=== PATIENT | male | born 1960 | race Caucasian/White ===

== ENCOUNTER 2019-01-10 23:44 | Emergency (ER) | payer MEDICAID ==
[~2019-01-10] VITALS: Ht 182.9 cm; Wt 260.0 kg
[2019-01-11] MEDS ORDERED: ondansetron 4mg rapidly disintigrating tab PO ONE (00:05)
[2019-01-11] MEDS ORDERED: nitroGLYCERIN 0.4mg SUBLingual tab SL PRN (00:05)
[2019-01-11] MEDS ORDERED: LIDOcaine Viscous 15ml cup PO ONE (00:20)
[2019-01-11] MEDS ORDERED: mag hydrox/Alum hydrox/simeth 30ml oral suspension PO ONE (00:20)
[2019-01-11] MEDS ORDERED: morphine 4 MG/ML inj SYRINge IV ONE (00:30)
[2019-01-11] MEDS ORDERED: ondansetron/PF 4mg/2ml inj IV ONE (00:30)
[2019-01-11] MEDS ORDERED: aspirin 325mg tablet PO ONE (00:30)
[2019-01-11 00:34] LABS: BASOPHILS # (AUTO) 0.1 X10'3 (0-0.2); BASOPHILS % (AUTO) 0.8 % (0-1); EOSINOPHILS # (AUTO) 0.2 X10'3 (0-0.9); HEMATOCRIT 52.6 % (42.0-52.0); HEMOGLOBIN 17.6 g/dl (14.0-17.9); LYMPHOCYTES # (AUTO) 2.5 X10'3 (1.1-4.8); LYMPHOCYTES % (AUTO) 21.7 % (21-51); MEAN CORPUSCULAR HEMOGLOBIN 30.2 PG (27.0-31.0); MEAN CORPUSCULAR HGB CONC 33.4 g/dL (33.0-36.5); MEAN CORPUSCULAR VOLUME 90.4 FL (78-98); MEAN PLATELET VOLUME 8.6 FL (7.4-10.4); MONOCYTES # (AUTO) 0.7 X10'3 (0-0.9); MONOCYTES % (AUTO) 6.2 % (2-12); NEUTROPHILS # (AUTO) 7.9 X10'3 (1.8-7.7); NEUTROPHILS % (AUTO) 69.3 % (42-75); PLATELET COUNT 231 X10'3 (140-440); RED BLOOD COUNT 5.82 X10'6 (4.70-6.10); RED CELL DISTRIBUTION WIDTH 14.5 % (11.5-14.5); WHITE BLOOD COUNT 11.4 X10'3 (4.5-11.0)
[2019-01-11 00:48] LABS: ALANINE AMINOTRANSFERASE 32 U/L (12-78); ALBUMIN 3.5 G/DL (3.4-5.0); ALBUMIN/GLOBULIN RATIO 1.1 (1.1-1.5); ANION GAP 8 (8-16); ASPARTATE AMINO TRANSFERASE 16 U/L (10-37); BILIRUBIN,TOTAL 0.4 MG/DL (0.1-1.0); BLOOD UREA NITROGEN 22 MG/DL (7-18); BUN/CREATININE RATIO 15.8 (5.4-32.0); CALCIUM 8.8 MG/DL (8.5-10.1); CHLORIDE 105 MMOL/L (99-107); CREATININE 1.39 MG/DL (0.60-1.10); GLUCOSE 146 MG/DL (70-104); POTASSIUM 4.1 MMOL/L (3.5-5.1); SODIUM 140 MMOL/L (135-145); TOTAL CARBON DIOXIDE 27.2 MMOL/L (24-32); TOTAL PROTEIN 6.8 G/DL (6.4-8.2); eGFR 53 ML/MIN
[2019-01-11 00:49] LABS: ALKALINE PHOSPHATASE 79 IU/L (46-116)
[2019-01-11 00:50] LABS: INR 1.1 INR
[2019-01-11 00:55] LABS: LIPASE 131 U/L (73-393)
[2019-01-11] MEDS ORDERED: famotidine 20mg tablet PO ONE (03:00)
[2019-01-11] MEDS ORDERED: pantoprazole 40mg Tablet.DR PO ONE (03:00)
[2019-01-11] MEDS ORDERED: PANT-47 PO (03:33)
[2019-01-11 04:15] VITALS: BP 126/74
== END 2019-01-11 04:16 | disposition home or self-care (01) ==
LOC: ER 23:45
DX: R07.9 Chest pain, unspecified (principal); R10.13 Epigastric pain; K42.9 Umbilical hernia without obstruction or gangrene; Z79.899 Other long term (current) drug therapy
CPT/HCPCS: 36415; 71045; 80053; 83690; 83735; 83880; 84484; 85025; 85610; 93005; 96374; 96375; 99284; J2270; J2405

== ENCOUNTER 2024-04-05 17:54 | Emergency (ER) | payer MEDICAID ==
[~2024-04-05] VITALS: Ht 180.3 cm; Wt 113.6 kg
[~2024-04-05 17:54] MED LIST: PANT-47 PO
[2024-04-05] MEDS ORDERED: CEPH-585 PO (21:13)
[2024-04-05 21:24] VITALS: BP 129/95; PULSE 77; RESP 15; TEMP 98.3; O2SAT 97
== END 2024-04-05 21:26 | disposition home or self-care (01) ==
LOC: ER 17:55
DX: M25.561 Pain in right knee (principal); E87.79 Other fluid overload; I87.2 Venous insufficiency (chronic) (peripheral); L03.115 Cellulitis of right lower limb; Z72.89 Other problems related to lifestyle; Z79.899 Other long term (current) drug therapy
CPT/HCPCS: 99283

== ENCOUNTER 2025-03-23 01:28 | Emergency (ER) | payer MEDICAID ==
[~2025-03-23] VITALS: Ht 180.3 cm; Wt 111.0 kg
--- NOTE | 2025-03-23 01:52 | ELECTROCARDIOGRAPH REPORT ---
[facility] Test Date: 2025-03-23 Test Time: 01:50:37 Pat Name: AUBREY MADRIGAL Department: [facility]-ER Patient ID: [facility]-[id number] Room: Gender: M Elevator Operator Service: : 1960 Requested By: NITISH JURADO Order Number: [id number] Reading MD: Dr. Nitish Jurado Measurements Intervals [employer] Rate: 85 P: 56 MT: 190 QRS: 120 QRSD: 174 T: 224 QT: 491 QTc: 584 Interpretive Statements Sinus rhythm Probable left atrial enlargement Right bundle branch block Repol abnrm suggests ischemia, diffuse leads Electronically Signed On 03-23-2025 3:20:[address] Nitish Jurado Please click the below link to view image of tracing.
[2025-03-23 02:21] LABS: MEAN PLATELET VOLUME 7.9 FL (7.4-10.4); RED CELL DISTRIBUTION WIDTH 15.8 % (11.5-14.5)
--- NOTE | 2025-03-23 02:21 | RADIOLOGY REPORT ---
CHEST RADIOGRAPH Indication: CP Technique: Single frontal view of the chest was obtained COMPARISON: None FINDINGS: Lines and Tubes: None Lungs: Clear Pleura: No effusion. No pneumothorax. Cardiomediastinal contours: Cardiomegaly. Bones: Unremarkable IMPRESSION: 1. Cardiomegaly.
[2025-03-23 02:45] LABS: CREATININE 1.16 MG/DL (0.60-1.10); PRO BRAIN NATRIURETIC PEPTIDE 2558 PG/ML (0-125); TOTAL CARBON DIOXIDE 24.2 MMOL/L (24-32); eCRCL 69 ML/MIN; eGFR 64 ML/MIN
--- NOTE | 2025-03-23 03:22 | Physician Documentation ---
History of Present Illness ~ Chief Complaint: Edema Stated Complaint: LEG PAIN Time Seen by MD: 02:47 OK to notify your PCP?: Yes Primary Medical Doctor: XU HERR Source: patient, RN/, RN notes reviewed, old records Mode of Arrival: POV Exam Limitations: no limitations HPI 64 year old male with history of diabetes and cardiomegaly seen in bed 08 presents to the emergency department for complaints of bilateral edema that has been present for one month. He states that one month ago he had fallen off a ladder, while falling his legs tangled in the ladder causing abrasions. He states his legs have had trouble healing, complaining of swelling and weeping wounds. Additionally he states he has been short of breath. Patient states he used to see a Executive Asst but no longer does, he cannot recall his last echocardiography. Medication Reconciliation Allergies: Coded Allergies: No Known Allergies (Unverified , 01/10/19) Scheduled Cephalexin*Monohydrate* (Keflex*), 1 CAP PO BID Pantoprazole Sodium (PROTONIX tablet), 1 TAB PO DAILY Durable Medical Equipment Compr.stocking,Thigh,Reg,Large (Compression Thigh Stocking), AHFU ANKLE DAILY, (DME) Past Medical History Past Medical History: *CARDIOVASCULAR*, Hernia, Diabetes Past Surgical History: noncontributory Alcohol Use: Occasionally Lives In: Home Review of Systems All Other Systems at this time: Reviewed and Negative ROS As stated above in the HPI, otherwise all systems are reviewed and negative. Physical Exam Vital Signs: RN Vital Signs have been reviewed: Yes, Temperature: 97.2, Source: Temporal, Heart Rate: 78, Respiratory Rate: 16, BP: 112/82, Pulse Oximetry: 92, Weight: 111.000 Oxygen Flow Rate: 0 Pulse Oximetry Reflects: adequate oxygenation General Appearance General: The patient is well developed, well nourished, nontoxic appearing and is in no acute distress. Skin: [place], warm and dry with no rashes. HEENT: Head was normocephalic and atraumatic. Eyes - pupils equal, round, reactive to light and accommodation. Extraocular movements were intact. Conjun ctivae were nonicteric. Ears - bilateral tympanic membranes were normal. The mouth and oropharynx were clear with moist mucous membranes. There were no pharyngeal exudates or erythema. Neck: Supple and nontender. There was no jugular venous distention, lymphadenopathy, thyromegaly or masses. Chest: Clear to auscultation bilaterally without wheezes, rales or rhonchi. No accessory muscle use. No dullness to percussion. Heart: Rate regular and rhythmic. S1, S2. No murmurs. Palpation of the chest wall was normal. No rubs or thrills. Abdomen: Soft, nontender and nondistended. Positive bowel sounds. No guarding or rebound. No hepatosplenomegaly or palpable masses. Extremities: Bilateral crusting ulcerations with weeping edema. The patient moves all extremities. Pulses were equal and symmetric. Neurologic: Cranial nerves II-XII were intact. Sensation was intact to light touch throughout. Motor strength was 5/5 in all four extremities. Deep tendon reflexes were intact in both upper and lower extremities. Psychologic: The patient was oriented to person, place and time. The patient demonstrated appropriate judgement and insight. Progress Results/Orders Reviewed/noted all lab results: Yes Results/Orders Orders - HUMPHREY MCGILL MD Chest,Single View (03/23/25 01:55) Monitor (03/23/25 01:39) Saline Lock (03/23/25 01:39) Oxygen (03/23/25 01:39) Electrocardiogram (03/23/25 01:39) Completed Orders - HUMPHREY MCGILL MD Chest,Single View (03/23/25 01:55) Cbc/Diff (03/23/25 01:39) BMP (03/23/25 01:39) PBNP (03/23/25 01:39) Electrocardiogram (03/23/25 01:39) Hs Troponin I W Calculations (03/23/25 01:39) Furosemide Tablet (Lasix Tablet) (03/23/25 03:50) Carvedilol Tablet (Coreg Tablet) (03/23/25 03:50) Cephalexin Capsule (Keflex Capsule) (03/23/25 03:50) Medications Received in ER Medications (Trade) Dose Ordered Sig/Roberto Route PRN Reason Start Time Stop Time Status Last Admin Dose Admin (Lasix tablet) 40 mg ONCE ONCE PO 03/23/25 03:50 03/23/25 03:51 DC 03/23/25 04:03 40 MG (Coreg tablet) 3.125 mg ONCE PO 03/23/25 03:50 03/23/25 04:11 DC 03/23/25 04:03 3.125 MG (Keflex capsule) 250 mg ONCE ONCE PO 03/23/25 03:50 03/23/25 03:51 DC 03/23/25 04:03 250 MG Vital Signs 03/23/25 03/23/25 03/23/25 03/23/25 01:30 02:03 02:35 04:05 Temp 97.2 97.7 Pulse 89 78 78 Resp 20 16 16 16 B/P (MAP) 127/85 112/82 (92) 133/85 Pulse Ox 99 92 92 O2 Flow Rate 0 0 Laboratory Tests Test 03/23/25 02:13 White Blood Count 7.5 Red Blood Count 4.96 Hemoglobin 15.9 Hematocrit 46.2 Mean Corpuscular Volume 93.1 Mean Corpuscular Hemoglobin 32.1 H Mean Corpuscular Hemoglobin Concent 34.5 Red Cell Distribution Width 15.8 H Platelet Count 260 Mean Platelet Volume 7.9 Neutrophils (%) (Auto) 62.7 Lymphocytes (%) (Auto) 24.7 Monocytes (%) (Auto) 6.9 Eosinophils (%) (Auto) 3.2 Basophils (%) (Auto) 2.5 H Neutrophils # (Auto) 4.7 Lymphocytes # (Auto) 1.8 Monocytes # (Auto) 0.5 Eosinophils # (Auto) 0.2 Basophils # (Auto) 0.2 CBC Comment Sodium Level 139 Potassium Level 3.4 L Chloride Level 107 Carbon Dioxide Level 24.2 Anion Gap 8 Blood Urea Nitrogen 21 H Creatinine 1.16 H Estimated GFR/1.73 m2 64 BUN/Creatinine Ratio 18.1 Glucose Level 129 H Calcium Level 8.9 Troponin I High Sensitivity 40 Pro-B-Type Natriuretic Peptide 2558 H Albumin 3.7 Chemistry Comments Re-Evaluation Re-Evaluation : Re-Evaluation: Improved Progress Patient was seen and examined. Patient is given reassurance. Patient had m romana medical questions about his health. Patient based on his medication list has pulmonary hypertension heart failure and dependent edema. 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 Patient laboratory work was obtained CBC is within normal limits no elevated white count no anemia. Patient's chemistry showed borderline hypokalemia with a potassium of 3.4 BUN elevated 21 creatinine at 1.16. BNP elevated at 2558. Troponin is negative. EKG was reassuring. X-ray showed pretty significant cardiomegaly consistent with heart failure. Patient was given Coreg Lasix and antibiotics. Until the patient he did not need the antibiotics he was insisted his legs were infected he did have some crust over a few of his lesions they are healing very poorly but mostly due to edema. Patient is certainly at risk of developing a infection since the skin is broken down. So had no problems giving him an antibiotic otherwise he appeared well he was ultimately discharged home after his workup. Continuous manager cardiac interpretation shows normal sinus rhythm heart rate 80s, no ectopy, normal, my interpretation. Pulse oximetry monitor interpretation shows normal oxygenation at 99% room air, normal, my interpretation. EKG/XRAY/CT/US/VASC/MRI EKG : Additional Comment [facility] Test Date: 2025-03-23 Test Time: 01:50:37 Pat Name: AUBREY MADRIGAL Department: [facility]- Patient ID: [id number] Room: Gender: M Director Auto: : 1960 Requested By: HUMPHREY MCGILL Order Number: [id number] Reading MD: Dr. Humphrey Mcgill Measurements Intervals [place] Rate: 85 P: 56 AL: 190 QRS: 120 QRSD: 174 T: 224 QT: 491 QTc: 584 Interpretive Statements Sinus rhythm Probable left atrial enlargement Right bundle branch block Repol abnrm suggests ischemia, diffuse leads Electronically Signed On 03-23-2025 3:20:[address] Humphrey Mcgill Please click the below link to view image of tracing. EKG Date and Time:03/23/25 0150 Electronically Signed by: HUMPHREY MCGILL MD Date and Time: 03/23/25 032 Chest X-Ray : Additional Comments CHEST RADIOGRAPH Indication: CP Technique: Single frontal view of the chest was obtained COMPARISON: None FINDINGS: Lines and Tubes: None Lungs: Clear Pleura: No effusion. No pneumothorax. Cardiomediastinal contours: Cardiomegaly. Bones: Unremarkable IMPRESSION: 1. Cardiomegaly. Electronically Signed by:EDISON SIU MD Date & Time: 03/23/25217 Medical Decision Making Additional info obtained from: old records Differential Dx:Considerations: Include: Cancer, Cellulitis, Congestive heart failure, Compartment syndrome, Contusion, Deep venous thrombosis, Liver failure, Malnutrition, Muscle spasm, Plantaris rupture, Popliteal vein aneurysm, Renal faliure, Strain, Superfic thrombophlebitis, Venous insufficiency, Other Departure Time of Disposition: 03:43 Disposition: 01 HOME / SELF CARE / HOMELESS Impression: Primary Impression: Dependent edema Additional Impressions: Pulmonary hypertension Bilateral lower leg cellulitis Condition: Stable Discharge Instructions: Edema Additional Instructions: Purchase compression stalking to help improve edema. Follow up with rolling mill operator helper Keep your legs elevated. Referrals: NO PRIMARY CARE PROVIDER (PCP) POOJA LIU MD Prescriptions Compr.stocking,Thigh,Reg,Large (Compression Thigh Stocking) 1 Each Each AHFU ANKLE DAILY, #1 3 Refills Prov: HUMPHREY MCGILL MD 03/23/25 Cephalexin*Monohydrate* (Keflex*) 250 Mg Capsule 1 CAP PO BID for 7 Days, #14 CAP Prov: HUMPHREY MCGILL MD 03/23/25 Education Educated: Patient Educated regarding: diagnosis, prognosis, need for follow up, other Signature Scribe Signature: Scribed for Humphrey Mcgill MD by Ankit Vera . 03/23/25 03:48 Attestation: The note accurately reflects work and decisions made by me.Humphrey Mcgill MD 03/23/25 03:21 HUMPHREY MCGILL MD Mar 23, 2025 03:21 ANKIT ROJAS Mar 23, 2025 03:48
[2025-03-23] MEDS ORDERED: CEPH250T PO (03:51)
[2025-03-23] MEDS ORDERED: COMP-44 ANKLE (03:55)
[2025-03-23 04:05] VITALS: BP 133/85; PULSE 78; RESP 16; TEMP 97.7; O2SAT 92
== END 2025-03-23 04:10 | disposition home or self-care (01) ==
LOC: ER 01:29
DX: L03.116 Cellulitis of left lower limb (principal); L03.115 Cellulitis of right lower limb; R60.0 Localized edema; I27.20 Pulmonary hypertension, unspecified; E11.9 Type 2 diabetes mellitus without complications; Z79.899 Other long term (current) drug therapy; Z72.89 Other problems related to lifestyle
CPT/HCPCS: 36415; 71045; 80048; 83880; 84484; 85025; 93005; 99285